=== PATIENT | female | born 1975 | race Caucasian/White ===

== ENCOUNTER 2025-05-08 13:48 | Emergency (ER) | payer OTHER ==
[2025-05-08 14:08] LABS: BASOPHILS ABSOLUTE AUTO 0.1 K/mm3 (0.0-0.2); BASOPHILS PERCENT AUTO 0.3 % (0.0-1.0); EOSINOPHILS ABSOLUTE AUTO 0.0 K/mm3 (0.0-0.4); EOSINOPHILS PERCENT AUTO 0.1 % (0.0-6.0); IMMATURE GRAN ABSOLUTE AUTO 0.27 K/mm3 (0.00-0.05); IMMATURE GRAN PERCENT AUTO 0.9 % (0.0-0.4); LYMPHOCYTES ABSOLUTE AUTO 4.9 K/mm3 (1.0-4.8); LYMPHOCYTES PERCENT AUTO 17.1 % (24.0-44.0); MEAN PLATELET VOLUME 9.6 fl (9.4-12.3); MONOCYTES ABSOLUTE AUTO 1.3 K/mm3 (0.0-0.8); MONOCYTES PERCENT AUTO 4.4 % (0.0-8.0); NEUTROPHILS ABSOLUTE AUTO 22.0 K/mm3 (1.8-7.7); NEUTROPHILS PERCENT AUTO 77.2 % (41.0-71.0); NRBC ABSOLUTE 0.00 (0.00-0.02); NRBC PERCENT 0.0 % (0.0-0.2); PLATELET COUNT,PLT 349 K/mm3 (150-400); RED BLOOD CELL COUNT 5.25 M/mm3 (4.10-5.30); WHITE BLOOD CELL COUNT,WBC 28.53 K/mm3 (3.9-11.3)
[2025-05-08] MEDS: Iopamidol 612 MG/ML 100 ML Bottle IVPUSH ONE (14:12)
[2025-05-08] MEDS: Sodium Chloride 0.9% 10 ML Syringe FLUSH PRN (14:12)
[2025-05-08] MEDS: Iopamidol 612 MG/ML 30 ML SDV IVPUSH ONE (14:12)
[2025-05-08 14:26] LABS: INR 1.05
[2025-05-08 14:28] LABS: PTT,PARTIAL THROMBOPLSTIN TIME 24.5 SECONDS (21.7-31.4)
[2025-05-08] MEDS: Diphtheria,Pertussis(Acell),Tetanus Vaccine 0.5 ML Syringe IM ONE (14:30)
[2025-05-08 14:31] LABS: A/G RATIO 1.0 (1-2); ALANINE AMINOTRANSFERASE,ALT 27 U/L (14-59); ASPARTATE AMNIOTRANSFERASE,AST 32 U/L (15-37); BILIRUBIN TOTAL 0.5 mg/dL (0.2-1.0); BLOOD UREA NITROGEN,BUN 12 mg/dL (7-18); CARBON DIOXIDE,CO2 18 mEq/L (21-32); CHLORIDE,CL 103 mEq/L (98-107); CREATININE 1.2 mg/dL (0.55-1.02); ESTIMATED GFR 56 mL/min (>60); GLUCOSE RANDOM 254 mg/dL (70-99); POTASSIUM,K 3.0 mEq/L (3.5-5.1); PROTEIN TOTAL,TP 7.7 g/dl (6.4-8.2); SODIUM,NA 137 mEq/L (136-145)
[2025-05-08] MEDS ORDERED: Naloxone 0.4 MG/ML SDV IVPUSH PRN ×2 (14:33→17:43)
[2025-05-08 14:35] LABS: ETHANOL BLOOD MEDICAL 0.00 gm% (0.00)
[2025-05-08] MEDS: Ondansetron 4 MG Tab.DIS PO ONE (14:50)
[2025-05-08] MEDS: Acetaminophen/oxyCODONE 325-5 MG Tab PO ONE (14:50)
== END 2025-05-08 18:15 | disposition home or self-care (01) ==
LOC: JD.ED 13:48
DX: S22.42XA Multiple fractures of ribs, left side, initial encounter for closed fracture (principal); S42.102A Fracture of unspecified part of scapula, left shoulder, initial encounter for closed fracture; S91.011A Laceration without foreign body, right ankle, initial encounter; S90.01XA Contusion of right ankle, initial encounter; S50.02XA Contusion of left elbow, initial encounter; S70.12XA Contusion of left thigh, initial encounter; M24.9 Joint derangement, unspecified; Z23 Encounter for immunization; V89.2XXA Person injured in unspecified motor-vehicle accident, traffic, initial encounter; W25.XXXA Contact with sharp glass, initial encounter
CPT/HCPCS: 12002; 12013; 36415; 70450; 70450-26; 70486; 70486-26; 71045; 71045-26; 71260; 71260-26; 72125; 72125-26; 73070-26-LT; 73070-LT; 74177; 74177-26; 80053; 80307; 83690; 84703; 85025; 85610; 85730; 90471; 90715; 96374; 96376; 99284; 99284-25; A9270-GY; J1171; Q9967